=== PATIENT | male | born 1980 | race Caucasian/White ===

== ENCOUNTER 2022-10-13 20:37 | Emergency (ER) | payer OTHER, SELFPAY ==
--- NOTE | ~2022-10-13 | XR_ITS ---
EXAMINATION: LEFT KNEE, LEFT ANKLE CLINICAL INFORMATION: Fall with pain COMPARISON: None TECHNIQUE: 4 views left knee, 3 views left ankle FINDINGS: Knee: No significant bone, joint or soft tissue abnormality is seen. Ankle: No significant bone, joint or soft tissue abnormality is seen. XR/XR knee LT 2V IMPRESSION: No evidence of an acute osseous injury.
--- NOTE | ~2022-10-13 | XR_ITS ---
EXAMINATION: LEFT KNEE, LEFT ANKLE CLINICAL INFORMATION: Fall with pain COMPARISON: None TECHNIQUE: 4 views left knee, 3 views left ankle FINDINGS: Knee: No significant bone, joint or soft tissue abnormality is seen. Ankle: No significant bone, joint or soft tissue abnormality is seen. XR/XR ankle LT 2V IMPRESSION: No evidence of an acute osseous injury.
[2022-10-13 21:38] VITALS: BP 161/113; PULSE 86; RESP 16; TEMP 36.7; O2SAT 99; BMI 33.4
--- NOTE | 2022-10-14 00:14 | ED_ITS ---
HPI - Fall General Chief Complaint: Fall Stated Complaint: left leg injury Time Seen by Provider: 10/14/22 00:03 Source: patient and family Mode of arrival: ambulatory Limitations: no limitations History of Present Illness HPI Narrative: 42-year-old male came in for evaluation after fell hurting his left foot/ankle at work. Patient was working fell down forward after lost balance causing twist of his left foot and ankle been having severe pain in the left foot and ankle unable to bear weight on him. Injury is work related as per patient. Related Data Previous Rx's Medication Instructions Recorded chlorthalidone 50 mg tablet 50 mg PO DAILY #30 tabs 07/03/20 Allergies Allergy/AdvReac Type Severity Reaction Status Date / Time No Known Allergies Allergy Mild NONE Verified 10/13/22 21:48 Review of Systems Review of Systems: All other systems are reviewed and are negative Constitutional: Reports as per HPI and Reports no additional constitutional complaints Eyes: Reports as per HPI and Reports no additional eye complaints Reports system reviewed and no additional complaints, except as documented Cardiovascular: Reports as per HPI and Reports no additional cardiovascular complaints Respiratory: Reports as per HPI and Reports no additional respiratory complaints Gastrointestinal: Reports as per HPI and Reports no additional gastrointestinal complaints Genitourinary: Reports no additional female genitourinary complaints Musculoskeletal: Reports no additional musculoskeletal complaints Skin/Breast: Reports system reviewed and no additional complaints, except as docu Psychiatric: Reports no additional psychiatric complaints Endocrine: Reports no additional endocrine complaints Hematologic/Lymphatic: Reports no additional hematologic/lymphatic complaints Allergic/Immunologic: Reports no additional allergic/immunologic complaints Reports system reviewed and no additional complaints, except as documented and Reports Abnormal speech present [facility] Past Medical History Surgical History History of appendectomy Family History Family History Father No problems noted. Mother No problems noted. Social History Social History Advance Directives: No Advance Directives Information Provided: Yes Physical Exam Vital Signs: Vital Signs: Last Vital Signs Temp 98.0 F 10/13/22 21:38 Pulse 86 10/13/22 21:38 Resp 16 10/13/22 21:38 BP 161/113 H 02/20/23 21:38 Pulse Ox 99 10/13/22 21:38 O2 Del Method 10/13/22 21:38 BMI result Body Mass Index 33.4 Vital signs have been reviewed as appeared to be correct. Blood pressure normal. Heart rate normal. Respiration rate normal. Temperature normal. Oxygen saturation normal. Appearance: Alert. Oriented X3. No acute distress. Head: Normal external exam. Normocephalic. Atraumatic. No Toscano signs noted. No raccoon eyes noted Eyes: PERRLA. EOMI. Conjunctiva and sclera normal. Eyelids normal. ENT: TM's Normal. Pharynx normal. Uvula midline. Moist mucous membranes. No trismus noted. No drooling noted. No muffled voice noted. Neck: Normal inspection. Neck supple. FROM. No adenopathy. Thyroid Normal. No meningeal signs. No neck mass noted. CVS: Normal heart rate and rhythm. Heart sound normal. No murmurs noted. Pulses normal throughout. Respiratory: No respiratory distress. Painless inspiration. Breath sounds normal. No wheezes/rales/rhonchi noted. Chest nontender. No accessory muscle usage noted or decreased air movement noted. Abdomen: Soft and nontender. Bowel sounds normal in all 4 quadrants. No distention noted. No organomegaly noted. No visible injury noted. Back: No CVA tenderness. Full range of motion noted. Skin: Skin warm and dry. Normal skin color. Normal skin turgor. No rashes/lesions/lacerations noted. Extremities: Left foot/ankle exam: No deformity, diffuse tenderness around the ankle more to the lateral malleolus, no swelling, normal neurovascular exam, unable to bear weight on left foot. Neuro: Oriented X 3. Cranial nerve exam: II-XII are grossly intact No motor deficit. No sensory deficit. Reflexes normal. Course Course Course Narrative: Left foot/ankle contusion after work related injury. Rest, ice, Santiago wrap, crutches for no bearing weight, follow up with Orthopedic. Medical Decision Making Differential Diagnosis Differential Diagnoses: The differential diagnosis associated with the presentation includes (Left foot sprain, left foot fracture, knee fracture, knee sprain.) Independent Interpretation I performed an independent interpretation of an: Plain X-Ray (Left foot/knee: No acute fracture or dislocation.) Radiology Impression Discussion of test interpretation with radiology: I have reviewed the radiologist's reading. Discharge Plan Discharge Clinical Impression: Contusion of knee, left, Left ankle sprain Patient Disposition: Home, Self-Care Instructions: Ankle Sprain (ED) Additional Instructions: Apply ice, rest, take ibuprofen 200 mg [id number] 1 pill every 6 hours if needed for pain, use crutches, follow-up with Orthopedic as discussed. Prescriptions: No Action chlorthalidone 50 mg tablet 50 mg PO DAILY Qty: 30 2RF Rx Instructions: take 1 in the a/m with food Referrals: uLisito Bansal MD [Physician] - Stand Alone Forms: Work/School Release
[2022-10-14] MEDS: Ibuprofen 800 MG TABLET PO (01:03)
== END 2022-10-14 01:07 | disposition home or self-care (01) ==
PROVIDERS: Emergency Provider Emergency Medicine; PCP Nurse Practitioner Family
DX: S80.02XA Contusion of left knee, initial encounter (principal); S93.402A Sprain of unspecified ligament of left ankle, initial encounter; W01.0XXA Fall on same level from slipping, tripping and stumbling without subsequent striking against object, initial encounter; Y93.E9 Activity, other interior property and clothing maintenance; Y92.59 Other trade areas as the place of occurrence of the external cause; Y99.0 Civilian activity done for income or pay
CPT/HCPCS: 73560; 73600; 99283

== ENCOUNTER → 2023-05-18 09:31 | Outpatient (BNVA) | payer OTHER, SELFPAY | PROVIDERS: PCP Nurse Practitioner Family; Visit Provider Internal Medicine | DX: S39.012A Strain of muscle, fascia and tendon of lower back, initial encounter (principal); X50.0XXA Overexertion from strenuous movement or load, initial encounter | CPT/HCPCS: 99202 ==

== ENCOUNTER 2024-01-01 10:36 | Emergency (ER) | payer OTHER, SELFPAY ==
--- NOTE | ~2024-01-01 | CT_ITS ---
CT SOFT TISSUE NECK WITH CONTRAST CLINICAL INFORMATION: Fever and neck pain. COMPARISON: None available. TECHNIQUE: Following the intravenous administration of 100 mL of Omnipaque 350 intravenous contrast, helical imaging was performed in the axial plane with generation of coronal and sagittal reformatted images. This CT examination was performed using dose optimization techniques as appropriate, variously including the following: *Automated exposure control *Adjustment of mA and/or kV according to patient size (this includes techniques or standardized protocols for targeted exams where dose is matched to indication/reason for exam; i.e. extremities or head) *Use of iterative reconstruction technique FINDINGS: Multiple enlarged lymph nodes throughout the suprahyoid and infrahyoid neck, concentrated along the jugular chains, some of which are surrounded by soft tissue stranding. Given the history of fever, these findings could reflect cervical lymphadenitis. There is no abscess. Follow-up once the acute clinical course resolves advised to exclude alternative pathology. The parotid glands are homogeneous in attenuation. The submandibular glands are normal. The thyroid gland is normal. No contour abnormality or pathologic enhancement is seen within the oral cavity or pharyngeal mucosal space. No retropharyngeal fluid collection is seen. The laryngeal structures are normal. The parapharyngeal fat is preserved. The carotid sheath vasculature opacify normally. The superior mediastinum is unremarkable. The lung apices are clear. The mastoid air cells and visualized portions of the paranasal sinuses are well-aerated. The imaged portions of the brain parenchyma are unremarkable. CT/CT soft tissue neck w IV con IMPRESSION: Multiple enlarged lymph nodes throughout the suprahyoid and infrahyoid neck, concentrated along the jugular chains, some of which are surrounded by soft tissue stranding. Given the history of fever, these findings could reflect cervical lymphadenitis. There is no abscess. Follow-up once the acute clinical course resolves advised to exclude alternative pathology.
[2024-01-01 10:48] VITALS: BP 180/108; RESP 16; TEMP 39; O2SAT 97; BMI 32.5
--- NOTE | 2024-01-01 11:17 | ED.GENADULT ---
HPI - General Adult General Chief complaint: Fever Stated complaint: inflamed neck ? Time Seen by Provider: 01/01/24 11:44 Related Data Previous Rx's ?Medication ?Instructions ?Recorded chlorthalidone 50 mg tablet 50 mg PO DAILY #30 tabs 07/03/20 amoxicillin 500 mg tablet 1,000 mg (2 x 500 mg) PO DAILY 9 01/01/24 days #18 tabs Allergies Allergy/AdvReac Type Severity Reaction Status Date / Time No Known Allergies Allergy Mild NONE Verified 01/01/24 10:49 PMFSH Past Medical History Surgical History History of appendectomy Family History Family History Father No problems noted. Mother No problems noted. Social History Social History Advance Directives: Yes Advance Directives Information Provided: Yes Advance Directives on File: No Physical Exam ED Vital Signs: Vital Signs - 24 hr 01/01/24 10:48 Temperature 102.2 F H Respiratory Rate 16 Blood Pressure 180/108 H Pulse Oximetry 97 Oxygen Delivery Method Room Air BMI result Body Mass Index 32.5 Course Course Course Narrative: This is a rapid medical exam performed by Matthieu Dixon NP: Additional HPI, ROS, PE not included below will be deferred to primary provider. Patient is a 43-year-old male presenting to the ED with complaint of sore throat, swollen lymph nodes and fever since Thursday. States symptoms began after eating [employer] pizza on Thursday night. He denies any abdominal pain, nausea, vomiting, or diarrhea. Posterior oropharynx erythematous, febrile in triage, managing secretions, no trismus, no nuchal rigidity. Plan: labs, strep and viral swabs Additional chart for same visit created by primary provider. Medications Administered Discontinued Medications Generic Name Dose Route Start Last Admin Trade Name Freq PRN Reason Stop Dose Admin Acetaminophen 975 mg 01/01/24 12:51 01/01/24 13:38 Acetaminophen 325 Mg Tablet PO 01/01/24 12:52 975 mg ONCE ONE Administration Amoxicillin 1,000 mg 01/01/24 12:51 01/01/24 13:38 Amoxicillin 500 Mg Capsule PO 01/01/24 12:52 1,000 mg ONCE ONE Administration Ibuprofen 600 mg 01/01/24 11:18 01/01/24 11:21 Ibuprofen 600 Mg Tablet PO 01/01/24 11:19 600 mg ONCE ONE Administration Iohexol 60 ml 01/01/24 13:16 01/01/24 13:17 Iohexol 350 Mg/Ml 100 Ml Infus..Btl IV 01/01/24 13:17 60 ml ONCE ONE Administration Medical Decision Making Lab Data 01/01/24 12:05 01/01/24 12:05 Labs: Lab Results 01/01/24 Range/Units 12:05 WBC 17.3 H (4.8-10.8) X10*3/uL RBC 5.74 (4.60-5.80) X10*6/uL Hgb 15.9 (14.0-18.0) g/dl Hct 47.3 (42.0-52.0) % MCV 82.4 (80.0-98.0) fL MCH 27.7 (27.0-33.0) pg MCHC 33.6 (31.0-36.0) g/dl RDW 13.2 (11.0-16.0) % Plt Count 301 (160-400) X10*3/uL MPV 9.6 (9.4-12.4) fL Immature Gran % (Auto) 0.8 H (0.0-0.4) % Neut % (Auto) 86.2 H (45-73) % Lymph % (Auto) 6.3 L (20-40) % [facility] % (Auto) 6.3 (2-11) % Eos % (Auto) 0.1 (0-4) % Baso % (Auto) 0.3 (0-2) % Lymph # (Auto) 1.1 L (1.2-4.9) X10*3/uL [facility] # (Auto) 1.1 (0.1-1.2) X10*3/uL Eos # (Auto) 0.0 (0.0-0.4) X10*3/uL Baso # (Auto) 0.1 (0.0-0.2) X10*3/uL Abs Immat Gran (auto) 0.13 H (0.00-0.03) X10*3/uL Absolute Neuts (auto) 14.9 H (2.0-8.3) x10*3/uL Absolute Nucleated RBC 0.000 (0.0-0.012) X10*3/uL Nucleated RBC % (auto) 0.0 (0.0-0.2) /100WBC Sodium 137 (135-145) mmol/L Potassium 3.8 (3.3-5.1) mmol/L Chloride 105 (96-108) mmol/L Carbon Dioxide 21 L (22-29) mmol/L Anion Gap 15 (12-20) BUN 11 (9-16) mg/dL Creatinine 0.98 (0.5-1.4) mg/dL Estim Creat Clear Calc 121.4 Estimated GFR > 60 Random Glucose 162 H (60-115) mg/dL Calcium 9.4 (8.4-10.2) mg/dL Total Bilirubin 0.9 (0.0-1.0) mg/dL AST 21 (5-37) U/L ALT 33 (0-40) U/L Alkaline Phosphatase 113 (39-117) U/L Total Protein 8.1 H (6.5-8.0) g/dL Albumin 4.1 (3.5-5.0) g/dL Influenza Type A (PCR) NEGATIVE (Negative) Influenza Type B (PCR) NEGATIVE (Negative) RSV RNA Qual (PCR) NEGATIVE (Negative) SARS-CoV-2 RNA (RT-PCR) NEGATIVE (Negative) S. pyogenes GrpA PHILLIP Positive A (Negative) Discharge Plan Discharge Clinical Impression: Strep pharyngitis Patient Disposition: Home, Self-Care Instructions: Strep Throat (ED) Additional Instructions: You were found to have strep throat. You were given your 1st dose of antibiotics here in the ED. You are given a prescription for the same antibiotic. Please continue taking as directed and until completed. Your next dose should be taken tomorrow morning January 02, 2024. Please be sure to stay hydrated by drinking at least 8 cups of water per day. Please take 600 mg ibuprofen every 6 hours with food and water as needed for pain/fever. You can additionally take 1000 mg Tylenol every 8 hours for additional pain or fever relief. Please follow-up with your primary care doctor in the next 5-7 days for re-evaluation. Please return to the emergency room if any new symptoms or concerns including, but not limited to persistent fever, worsening pain, difficulty swallowing, difficulty breathing or inability to eat/drink. Prescriptions: New amoxicillin 500 mg tablet 1,000 mg PO DAILY 9 Days Qty: 18 0RF Rx Instructions: Please take next dose tomorrow 01/02/2024 No Action chlorthalidone 50 mg tablet 50 mg PO DAILY Qty: 30 2RF Rx Instructions: take 1 in the a/m with food Stand Alone Forms: Work/School Release Interventions: ED Discharge Assessment Last Done: 01/01/24 16:39 Discharge Date/Time: 01/01/24 16:40 Print Language: Arabic
[2024-01-01] MEDS: Ibuprofen 600 MG TABLET PO (11:21)
--- NOTE | 2024-01-01 11:56 | ED_ITS ---
HPI - General Adult General Chief complaint: Fever Stated complaint: inflamed neck ? Time Seen by Provider: 01/01/24 11:44 Source: patient Mode of arrival: ambulatory Limitations: no limitations History of Present Illness HPI narrative: This is a 43yom pmhx s/p appendectomy who presents for evaluation of fever. Patient states he ate some pizza 1 week ago. He states the next day he develop a sore throat. He states that over the next few days he felt sensation of throat swelling and voice changes. He states beginning to feel better 3 days prior to presentation. He states waking up this morning with fever. He states myalgias. He states feeling neck swelling. He states dry cough without sputum production or hemoptysis. He states no emesis or hematemesis. He states no diarrhea or bloody stools. He states no chest pain or dyspnea. He states no abdominal pain. He states no urinary changes. He states he does not use tobacco products, alcohol or recreational/illicit drugs. Related Data Previous Rx's ?Medication ?Instructions ?Recorded chlorthalidone 50 mg tablet 50 mg PO DAILY #30 tabs 07/03/20 amoxicillin 500 mg tablet 1,000 mg (2 x 500 mg) PO DAILY 9 01/01/24 days #18 tabs Allergies Allergy/AdvReac Type Severity Reaction Status Date / Time No Known Allergies Allergy Mild NONE Verified 01/01/24 10:49 Review of Systems 2 Review of Systems: ROS as per HPI [facility] Past Medical History Surgical History History of appendectomy Family History Family History Father No problems noted. Mother No problems noted. Social History Social History Advance Directives: Yes Advance Directives Information Provided: Yes Advance Directives on File: No Physical Exam ED Vital Signs: Vital Signs - 24 hr 01/01/24 10:48 01/01/24 12:06 01/01/24 15:29 Temperature 102.2 F H 98.7 F Pulse Rate 106 H 85 Respiratory Rate 16 20 18 Blood Pressure 180/108 H 142/91 H 130/90 H Pulse Oximetry 97 94 95 Oxygen Delivery Method Room Air Room Air Room Air 01/01/24 16:39 Temperature 98.7 F Pulse Rate 85 Respiratory Rate 18 Blood Pressure 130/90 H Pulse Oximetry 95 Oxygen Delivery Method Room Air BMI result Body Mass Index 32.5 . Gen: NAD, AOx3 HEENT: NCAT, EOMI, normal conjunctiva, moist oral mucosa, positive dental caries, no periapical dental abscess, lesions, uvula midline without edema, faint posterior oropharynx erythema without tonsillar edema or exudates, no hurt gingival pseudomembranes or bleeding gingiva, no edematous interdental papillae, palate is symmetrical without edema, no anterior neck edema or overlying skin changes, +b/l anterior cervical adenopathy, normal neck ROM with flexion/extension and lateral 45 degree rotation CV: RRR Pulm: CTAB, no increased work of breathing GI: Soft, NTND, no rebound, guarding or rigidity Neuro: Grossly non focal Medications Administered Discontinued Medications Generic Name Dose Route Start Last Admin Trade Name Freq PRN Reason Stop Dose Admin Acetaminophen 975 mg 01/01/24 12:51 01/01/24 13:38 Acetaminophen 325 Mg Tablet PO 01/01/24 12:52 975 mg ONCE ONE Administration Amoxicillin 1,000 mg 01/01/24 12:51 01/01/24 13:38 Amoxicillin 500 Mg Capsule PO 01/01/24 12:52 1,000 mg ONCE ONE Administration Ibuprofen 600 mg 01/01/24 11:18 01/01/24 11:21 Ibuprofen 600 Mg Tablet PO 01/01/24 11:19 600 mg ONCE ONE Administration Iohexol 60 ml 01/01/24 13:16 01/01/24 13:17 Iohexol 350 Mg/Ml 100 Ml Infus..Btl IV 01/01/24 13:17 60 ml ONCE ONE Administration Medical Decision Making Medical Decision Making [facility] Narrative: Differential diagnosis includes, but is not limited to viral pharyngitis, bacterial pharyngitis, strep pharyngitis, viral syndrome/upper respiratory tract infection. I have considered peritonsillar abscess and retropharyngeal abscess, but I have very low clinical suspicion for these etiologies given well-appearing patient with no concerning exam findings to suggest these pathologies. Patient is febrile and mildly tachycardic, which resolves with ibuprofen and acetaminophen. Otherwise, he is normotensive on room air. Exam is benign and reassuring with notable cervical lymphadenopathy and posterior oropharynx erythema. Labs are notable for leukocytosis with neutrophilia. I had considered viral pharyngitis such as mononucleosis, but this is considered less likely given lack of lymphocytosis and further positive strep test here in the ED. Treatment is initiated with 1000 mg p.o. amoxicillin. I have otherwise independently reviewed and interpreted patient's labs, which are otherwise noncontributory. He tests negative for COVID-19, Influenza and RSV. Diagnostic imaging studies are notable for cervical lymphadenitis, which is likely secondary to strep pharyngitis. Patient is provided 600mg po ibuprofen and 975 mg p.o. acetaminophen. I have reviewed the RME note. On re-examination, patient is well-appearing and in no acute distress. I suspect patient's symptoms and source of fever are secondary to strep pharyngitis and I will treat it as such. ?There is no indication for further emergent evaluation in this otherwise well-appearing patient as above. ?Patient is provided written and verbal instructions, educational materials, prescription for Amoxicillin, recommendations for outpatient follow-up, strict return precautions and teach back is performed. ?Patient states understanding and agreement with plan of care. ?Patient is discharged home in stable and improved condition. Admission/Observation Consideration of admission/observation: Escalation of care including admission/observation considered Lab Data MDM Lab Attestation statement: I reviewed the patient's lab results. 01/01/24 12:05 01/01/24 12:05 Labs: Lab Results 01/01/24 Range/Units 12:05 WBC 17.3 H (4.8-10.8) X10*3/uL RBC 5.74 (4.60-5.80) X10*6/uL Hgb 15.9 (14.0-18.0) g/dl Hct 47.3 (42.0-52.0) % MCV 82.4 (80.0-98.0) fL MCH 27.7 (27.0-33.0) pg MCHC 33.6 (31.0-36.0) g/dl RDW 13.2 (11.0-16.0) % Plt Count 301 (160-400) X10*3/uL MPV 9.6 (9.4-12.4) fL Immature Gran % (Auto) 0.8 H (0.0-0.4) % Neut % (Auto) 86.2 H (45-73) % Lymph % (Auto) 6.3 L (20-40) % [facility] % (Auto) 6.3 (2-11) % Eos % (Auto) 0.1 (0-4) % Baso % (Auto) 0.3 (0-2) % Lymph # (Auto) 1.1 L (1.2-4.9) X10*3/uL [facility] # (Auto) 1.1 (0.1-1.2) X10*3/uL Eos # (Auto) 0.0 (0.0-0.4) X10*3/uL Baso # (Auto) 0.1 (0.0-0.2) X10*3/uL Abs Immat Gran (auto) 0.13 H (0.00-0.03) X10*3/uL Absolute Neuts (auto) 14.9 H (2.0-8.3) x10*3/uL Absolute Nucleated RBC 0.000 (0.0-0.012) X10*3/uL Nucleated RBC % (auto) 0.0 (0.0-0.2) /100WBC Sodium 137 (135-145) mmol/L Potassium 3.8 (3.3-5.1) mmol/L Chloride 105 (96-108) mmol/L Carbon Dioxide 21 L (22-29) mmol/L Anion Gap 15 (12-20) BUN 11 (9-16) mg/dL Creatinine 0.98 (0.5-1.4) mg/dL Estim Creat Clear Calc 121.4 Estimated GFR > 60 Random Glucose 162 H (60-115) mg/dL Calcium 9.4 (8.4-10.2) mg/dL Total Bilirubin 0.9 (0.0-1.0) mg/dL AST 21 (5-37) U/L ALT 33 (0-40) U/L Alkaline Phosphatase 113 (39-117) U/L Total Protein 8.1 H (6.5-8.0) g/dL Albumin 4.1 (3.5-5.0) g/dL Influenza Type A (PCR) NEGATIVE (Negative) Influenza Type B (PCR) NEGATIVE (Negative) RSV RNA Qual (PCR) NEGATIVE (Negative) SARS-CoV-2 RNA (RT-PCR) NEGATIVE (Negative) S. pyogenes GrpA PHILLIP Positive A (Negative) Radiology Impression Discussion of test interpretation with radiology: I have reviewed the radiologist's reading. Radiologist Impression: CT/CT soft tissue neck w IV con IMPRESSION: Multiple enlarged lymph nodes throughout the suprahyoid and infrahyoid neck, concentrated along the jugular chains, some of which are surrounded by soft tissue stranding. Given the history of fever, these findings could reflect cervical lymphadenitis. There is no abscess. Follow-up once the acute clinical course resolves advised to exclude alternative pathology. Dictated By: Tyson Crespo MD Signed By: <Electronically signed by Tyson Crespo MD in OV> 01/01/24 4785 Discharge Plan Discharge Clinical Impression: Strep pharyngitis Patient Disposition: Home, Self-Care Instructions: Strep Throat (ED) Additional Instructions: You were found to have strep throat. You were given your 1st dose of antibiotics here in the ED. You are given a prescription for the same antibiotic. Please continue taking as directed and until completed. Your next dose should be taken tomorrow morning January 02, 2024. Please be sure to stay hydrated by drinking at least 8 cups of water per day. Please take 600 mg ibuprofen every 6 hours with food and water as needed for pain/fever. You can additionally take 1000 mg Tylenol every 8 hours for additional pain or fever relief. Please follow-up with your primary care doctor in the next 5-7 days for re-evaluation. Please return to the emergency room if any new symptoms or concerns including, but not limited to persistent fever, worsening pain, difficulty swallowing, difficulty breathing or inability to eat/drink. Prescriptions: New amoxicillin 500 mg tablet 1,000 mg PO DAILY 9 Days Qty: 18 0RF Rx Instructions: Please take next dose tomorrow 01/02/2024 No Action chlorthalidone 50 mg tablet 50 mg PO DAILY Qty: 30 2RF Rx Instructions: take 1 in the a/m with food Stand Alone Forms: Work/School Release Interventions: ED Discharge Assessment Last Done: 01/01/24 16:39 Discharge Date/Time: 01/01/24 16:40 Print Language: Grenadian
[2024-01-01 12:06] VITALS: BP 142/91; PULSE 106; RESP 20; O2SAT 94
[2024-01-01 12:22] LABS: MANUAL DIFF FLAG NO
[2024-01-01 12:31] LABS: IDNOW Serial# 58CA691E; Strep A Nucleic Acid Positive (Negative)
[2024-01-01 12:34] LABS: Basophils Absolute Auto 0.1 X10*3/uL (0.0-0.2); Basophils Percent Auto 0.3 % (0-2); Eosinophils Percent Auto 0.1 % (0-4); Hematocrit 47.3 % (42.0-52.0); Hemoglobin 15.9 g/dl (14.0-18.0); Imm Gran Abs Auto 0.13 X10*3/uL (0.00-0.03); Imm Gran Pct Auto 0.8 % (0.0-0.4); Lymphocytes Absolute Auto 1.1 X10*3/uL (1.2-4.9); Lymphocytes Percent Auto 6.3 % (20-40); Mean Corpuscular HGB Conc 33.6 g/dl (31.0-36.0); Mean Corpuscular Hemoglobin 27.7 pg (27.0-33.0); Mean Corpuscular Volume 82.4 fL (80.0-98.0); Mean Platelet Volume 9.6 fL (9.4-12.4); Monocytes Absolute Auto 1.1 X10*3/uL (0.1-1.2); Monocytes Percent Auto 6.3 % (2-11); Neutrophils Absolute Auto 14.9 x10*3/uL (2.0-8.3); Neutrophils Percent Auto 86.2 % (45-73); Platelet Count 301 X10*3/uL (160-400); Red Blood Count 5.74 X10*6/uL (4.60-5.80); Red Cell Distribution Width 13.2 % (11.0-16.0); White Blood Count 17.3 X10*3/uL (4.8-10.8)
[2024-01-01 12:43] LABS: Alanine Aminotransferase 33 U/L (0-40); Albumin Level 4.1 g/dL (3.5-5.0); Alkaline Phosphatase 113 U/L (39-117); Anion Gap 15 (12-20); Aspartate Amino Transferase 21 U/L (5-37); Bilirubin Total 0.9 mg/dL (0.0-1.0); Blood Urea Nitrogen 11 mg/dL (9-16); Calcium 9.4 mg/dL (8.4-10.2); Carbon Dioxide 21 mmol/L (22-29); Chloride 105 mmol/L (96-108); Creatinine Clr Calc Pharmacy 121.4; Estimated Glomerular Filt Rate > 60; Glucose Random 162 mg/dL (60-115); Potassium 3.8 mmol/L (3.3-5.1); Sodium 137 mmol/L (135-145); Total Protein 8.1 g/dL (6.5-8.0)
[2024-01-01 13:04] LABS: Influenza A PCR NEGATIVE (Negative); Influenza B PCR NEGATIVE (Negative); Resp Syncy Virus RNA Qual PCR NEGATIVE (Negative); SARS COV2 PCR INHOUSE NEGATIVE (Negative)
[2024-01-01] MEDS: iohexoL 350 MG/ML 100 ML INFUS..BTL 60 ML IV (13:17)
[2024-01-01] MEDS: Acetaminophen 325 MG TABLET 975 MG PO (13:38)
[2024-01-01] MEDS: Amoxicillin 500 MG CAPSULE 1000 MG PO (13:38)
[2024-01-01 15:29] VITALS: BP 130/90; PULSE 85; RESP 18; TEMP 37.1; O2SAT 95
[2024-01-01 16:39] VITALS: BP 130/90; PULSE 85; RESP 18; TEMP 37.1; O2SAT 95
== END 2024-01-01 16:40 | disposition home or self-care (01) ==
PROVIDERS: Registered Nurse Emergency; Emergency Provider Emergency Medicine; PCP Nurse Practitioner Family
DX: J02.9 Acute pharyngitis, unspecified (principal); R50.9 Fever, unspecified; Z11.52 Encounter for screening for COVID-19; Z20.822 Contact with and (suspected) exposure to COVID-19; Z79.899 Other long term (current) drug therapy
CPT/HCPCS: 0241U; 70491; 80053; 85025; 87651; 99284; Q9967

== ENCOUNTER 2024-10-20 14:25 | Emergency (ER) | payer OTHER, SELFPAY ==
--- NOTE | ~2024-10-20 | XR_ITS ---
EXAMINATION: XR CHEST CLINICAL INFORMATION: COughing. Pneumonia/ COMPARISON: X-ray September 06, 2015 is not available on PACS. TECHNIQUE: Frontal view of the chest was obtained. FINDINGS: No consolidation, pleural effusion or pneumothorax. Cardiomediastinal silhouette demonstrates a prominent aortic arch. Osseous structures are intact. XR/XR chest 1V IMPRESSION: No acute airspace disease. Electronically signed by: Olayinka Ho MD 10/20/2024 02:55 PM EST
[2024-10-20 14:31] VITALS: BP 173/109; PULSE 104; RESP 18; TEMP 38.2; O2SAT 96; BMI 32.7
--- NOTE | 2024-10-20 14:36 | ED_ITS ---
HPI - General Adult General Chief complaint: Upper Respiratory Symptoms Stated complaint: flu Symptoms Time Seen by Provider: 10/20/24 15:33 Source: patient Mode of arrival: ambulatory Limitations: no limitations History of Present Illness ED Provider: Shon Hansen HPI narrative: 44 yold male healthy presents to the ED for URI symptoms. Patient states his son tested positive for flu yesterday and now he is asymptomatic. patient denies any chest pain or shortness of breath. Related Data Previous Rx's ?Medication ?Instructions ?Recorded chlorthalidone 50 mg tablet 50 mg PO DAILY #30 tabs 07/03/20 amoxicillin 500 mg tablet 1,000 mg (2 x 500 mg) PO DAILY 9 01/01/24 days #18 tabs naproxen 500 mg tablet 500 mg PO BID PRN pain 7 days #14 10/20/24 tabs oseltamivir 75 mg capsule (Tamiflu) 75 mg PO BID 5 days #10 caps 10/20/24 Allergies Allergy/AdvReac Type Severity Reaction Status Date / Time No Known Allergies Allergy Mild NONE Verified 10/20/24 14:32 Review of Systems Review of Systems: nasal congestion, fever, sore throat PMFSH Past Medical History Surgical History History of appendectomy Family History Family History Father No problems noted. Mother No problems noted. Social History Social History Advance Directives: No Advance Directives Information Provided: No Do you have a plan to hurt others: No Plan Physical Exam ED Vital Signs: Vital Signs - 24 hr 10/20/24 14:31 Temperature 100.8 F H Pulse Rate 104 H Respiratory Rate 18 Blood Pressure 173/109 H Pulse Oximetry 96 Oxygen Delivery Method Room Air BMI result Body Mass Index 32.7 Const General: cooperative, healthy appearing, comfortable, no acute distress, well developed, alert, awake and Physically active Orientation/consciousness: patient oriented x3 HENMT Head: Yes normal to inspection, Yes No palpable skull fracture present, Yes normocephalic, Yes atraumatic and No abrasion Ears: hearing grossly normal bilaterally, external ears normal, TM's normal bilaterally, TM normal on the right, TM normal on the left, EAC's normal, mastoids normal and no periauricular adenopathy Throat: Yes posterior oropharynx normal, Yes tonsils normal and Yes uvula midline Eyes General: appearance normal, both eyes and all related structures Neck Neck: Yes normal visual inspection, Yes full ROM, Yes no lymphadenopathy, Yes no meningeal signs, Yes trachea midline, Yes supple, No anterior neck swelling and No lymphadenopathy Chest Chest palpation & inspection: normal inspection of the chest and normal palpation of entire chest wall Resp Effort & Inspection: normal respiratory effort and able to speak in complete sentences Auscultation: clear to auscultation bilaterally Cardio Jugular venous distension: no JVD Heart sounds: S1 normal heart sound present and S2 normal heart sound present GI Inspection: Yes normal to inspection Palpation (GI): Soft to palpation, not firm, nontender, no guarding and not rigid General: Yes no CVA tenderness Back/Spine/Pelvis Back: no CVA tenderness and No back tenderness Skin General skin exam: no rashes or lesions noted, elasticity normal and turgor normal Neuro General: patient oriented x3, gait normal, tone normal, moves all extremities, Normal light touch and pain sensation, no meningeal signs, no focal motor deficits and CN's II-XI intact bilaterally Extrem General: Yes normal to inspection, Yes full ROM and Yes capillary refill normal Psych Appearance: grossly normal, well kempt and not disheveled Course Course Course Narrative: RME: 44-year-old male presents to the ED for URI symptoms fever sore throat and coughing. Patient states his son was tested positive flu for yesterday. Patient is febrile tachycardic. Motrin Tylenol ordered chest x-ray ordered Medications Administered Discontinued Medications Generic Name Dose Route Start Last Admin Trade Name Navdeepq PRN Reason Stop Dose Admin Acetaminophen 975 mg 10/20/24 14:37 10/20/24 15:30 Acetaminophen 325 Mg Tablet PO 10/20/24 14:38 975 mg ONCE ONE Administration Ibuprofen 800 mg 10/20/24 14:37 10/20/24 15:30 Ibuprofen 800 Mg Tablet PO 10/20/24 14:38 800 mg ONCE ONE Administration Medical Decision Making Medical Decision Making MDM Narrative: 44 yold male presents to ED with URI symptoms. Patient's son tested positive for flu now he is having symptoms. Patient denies any chest pain or shortness of breath. Patient is positive for influenza. Patient was given Motrin Tylenol for tachycardia and fever. Patient is not toxic appearing. Not suspecting respiratory failure. Patient explained worrisome signs and informed to return to the ED immediately Differential Diagnosis Differential Diagnoses: The differential diagnosis associated with the presentation includes (COVID, SARS, strep, pneumonia) Admission/Observation Consideration of admission/observation: Escalation of care including admission/observation considered Lab Data MDM Lab Attestation statement: I reviewed the patient's lab results. Labs: Lab Results 10/20/24 Range/Units 15:33 Influenza Type A (PCR) POSITIVE A (Negative) Influenza Type B (PCR) NEGATIVE (Negative) RSV RNA Qual (PCR) NEGATIVE (Negative) SARS-CoV-2 RNA (RT-PCR) NEGATIVE (Negative) S. pyogenes GrpA PHILLIP Negative (Negative) Independent Interpretation I performed an independent interpretation of an: Plain X-Ray Radiology Impression Discussion of test interpretation with radiology: I have reviewed the radiologist's reading. Independent Historian Clinical information obtained from an independent historian. History obtained from or confirmed by: Other (Patient) Prescription Management I considered prescription management with: Antiviral Discharge Plan Discharge Clinical Impression: Influenza Patient Disposition: Home, Self-Care Instructions: Influenza (ED) Additional Instructions: You came back positive for flu. You will be discharged with Tamiflu. Return to the ED immediately for any chest pain, shortness of breath weakness dizziness, coughing up blood, or any other concerning symptoms. Recommend follow up with primary care provider. Chest x-ray came back negative for pneumonia Prescriptions: New oseltamivir [Tamiflu] 75 mg capsule 75 mg PO BID 5 Days Qty: 10 0RF naproxen 500 mg tablet 500 mg PO BID PRN (Reason: pain) 7 Days Qty: 14 0RF No Action chlorthalidone 50 mg tablet 50 mg PO DAILY Qty: 30 2RF Rx Instructions: take 1 in the a/m with food amoxicillin 500 mg tablet 1,000 mg PO DAILY 9 Days Qty: 18 0RF Rx Instructions: Please take next dose tomorrow 01/02/2024 Referrals: Gomez Goldstein FNP-[facility] [Primary Care Provider] - (Positive influenza) Stand Alone Forms: Work/School Release Discharge Date/Time: 10/20/24 17:43 Print Language: Ukrainian
[2024-10-20] MEDS: Acetaminophen 325 MG TABLET 975 MG PO (15:30)
[2024-10-20] MEDS: Ibuprofen 800 MG TABLET PO (15:30)
[2024-10-20 15:49] LABS: IDNOW Serial# 58CA691E; Strep A Nucleic Acid Negative (Negative)
[2024-10-20 17:08] LABS: Influenza A PCR POSITIVE (Negative); Influenza B PCR NEGATIVE (Negative); Resp Syncy Virus RNA Qual PCR NEGATIVE (Negative); SARS COV2 PCR INHOUSE NEGATIVE (Negative)
== END 2024-10-20 17:43 | disposition home or self-care (01) ==
PROVIDERS: Physician Assistant; Emergency Provider Emergency Medicine; PCP Nurse Practitioner Family
DX: J10.1 Influenza due to other identified influenza virus with other respiratory manifestations (principal); R50.9 Fever, unspecified; R05.9 Cough, unspecified; Z03.818 Encounter for observation for suspected exposure to other biological agents ruled out
CPT/HCPCS: 0241U; 71045; 87651; 99282; 99283

== ENCOUNTER → 2024-10-20 14:35 | Outpatient (BNV) | payer OTHER, SELFPAY | PROVIDERS: PCP Nurse Practitioner Family; Visit Provider Radiology Diagnostic Radiology | DX: J10.1 Influenza due to other identified influenza virus with other respiratory manifestations (principal) | CPT/HCPCS: 71045 ==